=== PATIENT | female | born 1955 | race Caucasian/White ===

== ENCOUNTER 2020-12-09 19:39 | Inpatient (IN) | payer BC ==
[2020-12-09] MEDS ORDERED: LORazepam 2 MG/ML INJ IV STA (21:03)
[2020-12-09] MEDS ORDERED: LORazepam 2 MG/ML INJ IM STA (21:05)
--- NOTE | 2020-12-09 21:16 | ED ---
General Adult HPI - General Source: patient, police, RN notes reviewed, old records reviewed Mode of arrival: ambulatory Limitations: no limitations <Patrick Aguirre - Last Filed: 12/09/20 22:08> <Natan Wheeler - Last Filed: 12/10/20 02:29> - General Chief complaint: Psychiatric Symptoms Stated complaint: Mental health Time Seen by Provider: 12/09/20 21:03 - History of Present Illness Initial comments: 65-year-old female brought in by local police for psychiatric evaluation. She has been petitioned. Apparently the patient recently lost her and has had some delusional thought. She has incoherent speech, detailed history is not able to be obtained from the patient. (Patrick Aguirre) - Related Data Home Medications Medication Instructions Recorded Confirmed Ibuprofen [Motrin] 800 mg PO DAILY PRN 12/09/20 12/09/20 LORazepam [Ativan] 0.5 mg PO DAILY PRN 12/09/20 12/09/20 Thyroid,Pork [Pilot Boat Operator Thyroid] 60 mg PO DAILY 12/09/20 12/09/20 Allergies Allergy/AdvReac Type Severity Reaction Status Date / Time bee venom protein (honey bee) Allergy Anaphylaxis Verified 12/09/20 22:48 Review of Systems ROS Other: All systems not noted in ROS Statement are negative. <Patrick Aguirre - Last Filed: 12/09/20 22:08> ROS Other: All systems not noted in ROS Statement are negative. <Natan Wheeler - Last Filed: 12/10/20 02:29> ROS Statement: Those systems with pertinent positive or pertinent negative responses have been documented in the HPI. Past Medical History Past Medical History: Thyroid Disorder History of Any Multi-Drug Resistant Organisms: Unobtainable Past Surgical History: No Surgical Hx Reported Past Psychological History: Unable to Obtain Smoking Status: Unknown if ever smoked Past Alcohol Use History: Unable to Obtain Past Drug Use History: Unable to Obtain <Patrick Aguirre - Last Filed: 12/09/20 22:08> General Exam Limitations: no limitations General appearance: alert, anxious Head exam: Present: atraumatic, normocephalic Eye exam: Present: normal appearance, PERRL Neck exam: Present: normal inspection. Absent: tenderness, meningismus Respiratory exam: Present: normal lung sounds bilaterally. Absent: respiratory distress, wheezes Cardiovascular Exam: Present: regular rate, normal rhythm GI/Abdominal exam: Present: soft. Absent: distended, tenderness Extremities exam: Present: normal inspection, normal capillary refill. Absent: pedal edema Neurological exam: Present: alert, oriented X3, CN II-XII intact. Absent: motor sensory deficit Psychiatric exam: Present: manic, other (Delusional) Skin exam: Present: warm, dry, intact. Absent: cyanosis, diaphoretic <Patrick Aguirre - Last Filed: 12/09/20 22:08> Course <Patrick Aguirre - Last Filed: 12/09/20 22:08> <Natan Wheeler - Last Filed: 12/10/20 02:29> Vital Signs 12/09/20 20:20 Temperature 98.1 F Pulse Rate 92 Respiratory 18 Rate Blood Pressure 121/81 O2 Sat by Pulse 96 Oximetry - Reevaluation(s) Reevaluation #1: 12/09/20 21:16 Cleared for EPS. (Patrick Aguirre) Reevaluation #2: 12/09/20 2300 Patient care has been signed out to Dr. Wheeler At shift change awaiting EPS evaluation (Patrick Aguirre) 12/10/20 02:28 Record is reviewed (Natan Wheeler) Reevaluation #3: 12/10/20 02:28 Medical clear for psychiatric evaluation (Natan Wheeler) Medical Decision Making <Natan Wheeler - Last Filed: 12/10/20 02:29> - Medical Decision Making 65 female who was seen and evaluated psychiatry, patient be admitted for psychiatric evaluation and treatment (Natan Wheeler) Disposition <Patrick Aguirre - Last Filed: 12/09/20 22:08> Is patient prescribed a controlled substance at d/c from ED?: No <Natan Wheeler - Last Filed: 12/10/20 02:29> Clinical Impression: Acute anxiety, Depression, Psychosis, Acute psychosis Disposition: TRANSFER TO PSYCH HOSP/UNIT Condition: Fair
[2020-12-10] MEDS ORDERED: MAGNESIUM HYDROXIDE 2,400 MG/10 ML CUP PO PRN (02:47)
[2020-12-10] MEDS ORDERED: LORazepam 1 MG TAB PO PRN (02:47)
[2020-12-10] MEDS ORDERED: MAG HYDROX/AL HYDROX/SIMETH 30 ML CUP PO PRN (02:47)
[2020-12-10] MEDS ORDERED: LORazepam 2 MG/ML INJ IM PRN (02:54)
[2020-12-10] MEDS ORDERED: HALOPERIDOL LACTATE 5 MG/ML 1 ML VIAL IM PRN (02:55)
[2020-12-10] MEDS ORDERED: haloperidoL 5 MG TAB PO PRN (02:55)
[2020-12-10] MEDS: THYROID, PORK 30 MG TAB PO SCH ×2 (09:03→09:19)
--- NOTE | 2020-12-10 11:35 | P.HP ---
Psychiatric H&P - . H&P Date: 12/10/20 History & Physical: Allergies Allergy/AdvReac Type Severity Reaction Status Date / Time bee venom protein (honey bee) Allergy Anaphylaxis Verified 12/09/20 22:48 Vital Signs Temp 97.5 F L 12/10/20 03:06 Pulse 64 12/10/20 03:06 Resp 16 12/10/20 03:06 BP 137/90 12/10/20 03:06 Pulse Ox 100 12/10/20 03:06 Intake & Output 12/09/20 12/10/20 12/10/20 18:59 06:59 18:59 Weight 53.887 kg 12/10/20 11:27 IDENTIFYING DATA: Patient is a 65-year-old female HPI: Patient presented to the hospital yesterday with police for a psychiatric evaluation. Patient was petitioned by her daughter Elena who states in the petition that she is "delusional thoughts, gun with ammunition, recent loss of , which may have triggered change in behavior, has one to multiple police departments causing confrontation, belief of a "psychopathy" in the community, carrying gun, drinking, I would've ordinary promiscuity". Patient in the ER was apparently delusional and having incoherent speech and was fairly uncooperative with the evaluation. Patient was seen on the unit in her room and was uncooperative and hostile with development writer. She swore and yelled profanities at development writer when development writer introduced himself and claims that "Im not Shahla now leave me the f alone!". She gathered her pillows and appeared to be physically agitated and walked over to another bed and began speaking negatively about her family wanting to "pump me full of meds" and began swearing repetitively and stopped talking to development writer and demanded him to leave the room. She is impulsive and aggressive/hostile this morning. She did not cooperate with the rest of the interview. PAST PSYCHIATRIC HISTORY: Patient has an unknown psychiatric history. Patient refused to give further details of her psychiatric history or medications. PMH: Thyroid disorder ALLERGIES: as per EMR CHEMICAL DEPENDENCY HISTORY: as per HPI FAMILY PSYCHIATRIC/SUBSTANCE USE HISTORY: Unable to obtain SOCIAL HISTORY: Unable to obtain. MENTAL STATUS EXAM: General Appearance: Patient appears to be restless, stated age is alert, difficult to engage with, uncooperative/hostile. Patient appears to have poor hygiene and grooming. Behavior: Patient is aggressive/hostile. Speech: Patient's speech is loud and demanding Mood/Affect: Unable to assess Suicidality/Homicidality: unAble to assess Perceptions: Unable to assess Though content/process: Rambles, delusional, illogical. Memory and concentration: Unable to assess Judgment and insight: poor/impulsive STRENGTHS/WEAKNESSES: strength is that patient is resilient. Weakness is that patient has poor judgment and is impulsive INTELLECT: average IMPRESSIONS: Psychosis unspecified PLAN: -Patient is admitted under involuntary status to MHU for stabilization of psychiatric symptoms and safety. Patient has not signed adult voluntary form and medication consent and is placed in patient's chart. A second certification was completed and along with petition will be filed for court. -Medications : Will start patient on paliperidone by mouth 3 mg daily at bedtime for mood stabilization/psychosis. -Ativan and Haldol PRN for agitation/aggression -Internal Medicine consult to perform medical evaluation and physical. -NRT - not needed as patient does not smoke -SW on board for discharge planning. Encourage patient to participate in groups to work on coping skills. Will await deferral and court date.
[2020-12-10] MEDS: PALIPERIDONE 3 MG TAB.ER.24 PO SCH (21:08)
--- NOTE | 2020-12-11 01:21 | P.PN ---
Progress Note - Text Progress Note Date: 12/11/20 Patient sedated and could not be evaluated.
[2020-12-11] MEDS: THYROID, PORK 30 MG TAB PO SCH (08:55)
--- NOTE | 2020-12-11 11:51 | P.PN ---
Progress Note - Text Progress Note Date: 12/11/20 Interval History: Patient was seen wandering the hallways and was directable and agreeable to sp michelle with technical document writer in her room. Patient appeared to be fairly paranoid with a technical document writer and spoke negatively of staff as they were trying to poison her. She was rambling and tangential/circumstantial in her thought processes. She was fairly disorganized. She spoke about her dying recently and about her links to the police force. She also spoke about [place] get [place]. She appeared to have very poor insight into her condition and has been refusing medications. She states that she slept okay last night. At this time patient denies any suicidal or homical ideations, intent or plan. Patient denies any auditory, visual hallucinations. Patient denies any side effects from the medications and has been compliant with meds. Mental Status Exam: General Appearance: Patient appears to be thin, stated age is alert, difficult to redirect, disorganized. Behavior: Patient is calmly seated without any agitated behavior. Speech: Patient's speech is fluent and nonpressured. Mood/Affect: Mood is "okay", affect is congruent and constricted. Suicidality/Homicidality: Patient denies having any suicidal or homicidal ideation intent or plan. Perceptions: Patient denies any visual hallucinations and denies any auditory hallucinations Though content/process: Tangential/circumstantial, rambles. Illogical at times. Significant paranoia. Memory and concentration: AOX3, grossly intact for the purposes of this session Judgment and insight: poor Assessment Psychosis unspecified Plan: -Patient continues to meet criteria for inpatient psychiatric admission for symptom stabilization and safety. Patient has not signed adult voluntary form and medication consent and was placed in patient's chart. -Medications: paliperidone by mouth 3 mg daily at bedtime for mood stabilization/psychosis. -When necessary Ativan and Haldol for agitation/aggression. -NRT -not needed as patient does not smoke -SW on board for discharge planning. Encouraged the patient to participate in milieu. Currently awaiting deferral with assistant district attorney and court date.
--- NOTE | 2020-12-11 17:37 | P.HPMEDMHU ---
History of Present Illness H&P Date: 12/11/20 History of Presenting Illness: Patient is a 65-year-old female with a past medical history of hypothyroidism. She is currently admitted to inpatient mental health unit under psychiatric team for evaluation of psychotic behaviors with diagnosis of psychosis. We have been consulted for continued medical management throughout her hospitalization. Upon physical examination, patient reports history of hypothyroidism and recent loss of her whom she reports she cared for while he was on hospice and states that she has since lost 35 pounds. Patient expressing paranoid behaviors throughout assessment very worried somebody was listening at the door and displayed delusional thoughts with aggressive and anxious behaviors with use of profanities regarding her hospitalization. Patient reported that she is currently locked up in this hospital because the police brought her here as part of the witness protection program to keep her safe because she witnessed a double homicide. Patient denies having any other complaints or needs at this time including headache, lightheadedness, dizziness, chest pain, palpitations, shortness of breath, or experiencing any numbness/tingling/weakness in her extremities. Review of systems: Pertinent positives and negatives as discussed in HPI, a complete review of systems was performed and all other systems are negative. Physical exam: Vital signs reviewed and stable. General: Nontoxic, no distress and appears stated age. Derm: Skin warm and dry, normal coloration for ethnicity. Head: Atraumatic, normocephalic and symmetric. Eyes: EOMs intact, no lid lag, and anicteric sclera Mouth: no lip lesions, mucus membranes moist Cardiovascular: regular rate and rhythm with normal S1S2, no murmur, positive posterior tibial pulses bilaterally, and cap refill < 2 seconds. Lungs: Respirations even, regular, and unlabored on room air. Lungs CTA bilaterally, no rhonchi, no rales, no wheezing, and no accessory muscle usage. Abdominal: soft, nontender to palpation, no guarding, no appreciable organomegaly Ext: ROM intact. No gross muscle atrophy, no edema, no contractures Neuro: Speech clear, face symmetrical and CN II-XII grossly intact with no noted focal neuro deficits Psych: Alert and oriented to person, place, time, and situation. Patient paranoid behaviors, delusional thought process, appears anxious and aggressive with language and use of profanities Assessment and Plan of Care: Hypothyroidism -Continue daily medication regimen. -We will obtain a TSH with reflex free T4 secondary to patient's reports of 35 pound weight loss and current psychosis. Psychosis -Management per primary admitting psychiatric team. -As stated above, we will obtain a TSH with reflex free T4 to rule out hyperthyroidism as cause of psychosis and urinalysis with urine drug screen Has been ordered. Thank you for allowing us to participate in the care of this pleasant patient. Do not hesitate to contact us with questions. RN to notify provider with needs. Someone can be reached from the [facility] hospitalist group all hours of the day at [phone] or via [employer]. Past Medical History Past Medical History: Thyroid Disorder History of Any Multi-Drug Resistant Organisms: Unobtainable Past Surgical History: No Surgical Hx Reported Past Psychological History: Unable to Obtain Smoking Status: Unknown if ever smoked Past Alcohol Use History: Unable to Obtain Past Drug Use History: Unable to Obtain Medications and Allergies Home Medications Medication Instructions Recorded Confirmed Type Ibuprofen [Motrin] 800 mg PO DAILY PRN 12/09/20 12/09/20 History LORazepam [Ativan] 0.5 mg PO DAILY PRN 12/09/20 12/09/20 History Thyroid,Pork [Chief Executive Thyroid] 60 mg PO DAILY 12/09/20 12/09/20 History Allergies Allergy/AdvReac Type Severity Reaction Status Date / Time bee venom protein (honey bee) Allergy Anaphylaxis Verified 12/09/20 22:48 Cranial Nerve Examination - Cranial Nerves Cranial Nerve II- Optic: Intact Cranial Nerve III- Oculomotor: Intact Cranial Nerve IV- Trochlear: Intact Cranial Nerve V- Trigeminal: Intact Cranial Nerve - Abducens: Intact Cranial Nerve VII- Facial: Intact Cranial Nerve VIII- Auditory: Intact Cranial Nerve IX- Glossopharyngeal: Intact Cranial Nerve X- Vagus: Intact Cranial Nerve XI- Accessory: Intact Cranial Nerve XII- Hypoglossal: Intact
[2020-12-11] MEDS: PALIPERIDONE 3 MG TAB.ER.24 PO SCH (21:55)
[2020-12-12 08:52] LABS: T4, Free (Free Thyroxine) 0.44 ng/dL (0.78-2.19)
[2020-12-12] MEDS: THYROID, PORK 30 MG TAB PO SCH (09:11)
--- NOTE | 2020-12-12 12:15 | P.PN ---
Progress Note - Text Progress Note Date: 12/12/20 Interval History: Patient was seen in her room laying in her bed and did not want to leave her r oom today. She continues to endorse paranoia and delusional with regards to needing to "solve a double homicide" in speaking with the "[place] state police". She was fairly illogical and had loose associations. She was rambling today. She spoke about her once again and began crying. She continues to state that she does not need psychiatric care or medications. She has been refusing her paliperidone at nighttime. She claims that she sleeps fine. At this time patient denies any suicidal or homical ideations, intent or plan. Patient denies any auditory, visual hallucinations. Patient denies any side effects from the medications and has been compliant with meds. Mental Status Exam: General Appearance: Patient appears to be thin, stated age is alert, difficult to redirect, disorganized. Behavior: Patient is calmly seated without any agitated behavior. Speech: Patient's speech is fluent and nonpressured. Mood/Affect: Mood is "fine", affect is congruent and constricted. Suicidality/Homicidality: Patient denies having any suicidal or homicidal ideation intent or plan. Perceptions: Patient denies any visual hallucinations and denies any auditory hallucinations Though content/process: Tangential/circumstantial, rambles. Illogical at times. Significant paranoia. delusional Memory and concentration: AOX3, grossly intact for the purposes of this session Judgment and insight: poor Assessment Psychosis unspecified Plan: -Patient continues to meet criteria for inpatient psychiatric admission for symptom stabilization and safety. Patient has not signed adult voluntary form and medication consent and was placed in patient's chart. -Medications: paliperidone by mouth 3 mg daily at bedtime for mood stabilization/psychosis. patient is not taking her meds. -When necessary Ativan and Haldol for agitation/aggression. -NRT -not needed as patient does not smoke -SW on board for discharge planning. Encouraged the patient to participate in milieu. Patient is meeting with bankruptcy attorney today for deferral and full court hearing set for 12/17.
[2020-12-12] MEDS: PALIPERIDONE 3 MG TAB.ER.24 PO SCH (21:37)
[2020-12-13] MEDS: THYROID, PORK 30 MG TAB PO SCH (07:59)
[2020-12-13] MEDS: PALIPERIDONE 3 MG TAB.ER.24 PO SCH (21:23)
--- NOTE | 2020-12-13 23:17 | P.PN ---
Progress Note - Text Progress Note Date: 12/13/20 Subjective: Patient was seen today as a cross coverage for Dr. Daugherty. The patient was evaluated, chart reviewed, case discussed with the treatment team. Patient reports good sleep last night, and appetite was reported as " fair". Patient has been going to selected groups and other unit activities. The patient is not taking her medications. Patient was very guarded and superficial in answering questions, but generally she denies depression or anxiety symptoms. She denies any suicidal or homicidal ideation. Patient denies any hallucinations. Patient was very fixated on that she doesn't need to be in the hospital and the only medication she is prescribed is thyroid. Patient presents with some delusions about she had coveted infection 2 years ago and she is a senior investigator witnessed".or homicide", and he reported that" I just to help with my to ". When asking about explanation for her statements, she became very agitated and left the room without excuse. Objective: Vitals has been reviewed. Mental status examination; Appearance: The patient appears stated age, groomed, below average body built, no specific features. Gait/posture: Normal gait, Normal arm swinging: No abnormal movements. Attitude and behavior: Not engaged, officially cooperative, poor eye contact. Motor activity: increased psychomotor activity Speech: Normal rate and rhythm Mood: Agitated Affect: Intensity Thought form: Not goal-directed, linear, not coherent. Thought content: Delusional. Denies suicidal thoughts, denies homicidal thoughts, denies intentions or plans. Perception: Denies any auditory or visual hallucinations Attention: No impairment. Patient was able to repeat serial 5. Orientation: Patient is oriented to time place person and situation. Insight: Patient has poor insight about her psychiatric disorder. Judgment: Patient has poor judgment about her psychiatric treatment. Assessment: Psychosis unspecified Plan: Continue inpatient level of care due to need for further monitoring and stabilization Precautions: Continue 15 minutes check for safety. Consider medical consultation if any acute medical issues arise. Provide the patient individual, group therapy, substance use disorder counseling to give better insight and learn coping skills. Medications: The patient is refusing medications and she is prescribed Invega 3 mg at bedtime. Continue as needed medications for psychiatric emergencies including psychosis, agitation and anxiety. Continue non-psychiatric medications for medical conditions as recommended by the medical team. NRT Discharge patient to OUTPATIENT services upon a stabilization
[2020-12-14] MEDS: THYROID, PORK 30 MG TAB PO SCH (08:42)
[2020-12-14] MEDS: PALIPERIDONE 3 MG TAB.ER.24 PO SCH (20:39)
--- NOTE | 2020-12-14 23:35 | P.PN ---
Progress Note - Text Progress Note Date: 12/14/20 Subjective: Patient was seen today as a cross coverage for Dr. Daugherty. The patient was evaluated, chart reviewed, case discussed with the treatment team. The patient continues to present with the same that she was guarded and very evasive in her answers. Today, the patient was talking about having fantasy that she is involved with in and you love relationship with a person who is calling her while she is in the unit. Patient denies feeling depressed, hopeless or suicidal. Denies any hallucinations, paranoid ideation, or delusions. Reports fair sleep and appetite. Patient continues to refuse any psych medications. Objective: Vitals has been reviewed. Mental status examination: Appearance: The patient appears stated age, groomed, below average body built, no specific features. Gait/posture: Normal gait, Normal arm swinging: No abnormal movements. Attitude and behavior: Not engaged, officially cooperative, poor eye contact. Motor activity: increased psychomotor activity Speech: Normal rate and rhythm Mood: "fine" Affect: Intensity Thought form: goal-directed, linear, coherent. Thought content: Delusional. Denies suicidal thoughts, denies homicidal thoughts, denies intentions or plans. Perception: Denies any auditory or visual hallucinations Attention: No impairment. Orientation: Patient is oriented to time place person and situation. Insight: Patient has poor insight about her psychiatric disorder. Judgment: Patient has poor judgment about her psychiatric treatment. Assessment: Psychosis unspecified Plan: Continue inpatient level of care due to need for further monitoring and stabilization Precautions: Continue 15 minutes check for safety. Consider medical consultation if any acute medical issues arise. Provide the patient individual, group therapy, substance use disorder counseling to give better insight and learn coping skills. Medications: The patient is refusing medications and she is prescribed Invega 3 mg at bedtime. Continue as needed medications for psychiatric emergencies including psychosis, agitation and anxiety. Continue non-psychiatric medications for medical conditions as recommended by the medical team. NRT Discharge patient to OUTPATIENT services upon a stabilization
[2020-12-15] MEDS: ACETAMINOPHEN TAB 325 MG TAB PO PRN (01:04)
[2020-12-15] MEDS: THYROID, PORK 30 MG TAB PO SCH (09:03)
--- NOTE | 2020-12-15 12:01 | P.PN ---
Progress Note - Text Progress Note Date: 12/15/20 Interval History: Patient was seen wandering the hallway speaking with another patient. She was agreeable to speak today to video game script writer. She continues to have very poor insight into her condition and believes that Manager Analysis Nima needs to recuse himself from her case because he was "involved with my daughter". She rambled and was tangential/circumstantial and a flight of ideas. She had several delusions about the police department and about different murder cases. She claims that she is sleeping fairly at nighttime and has been trying to go to some groups. She continues to refuse her medications. She claims that she sleeps finenighttime. At this time patient denies any suicidal or homical ideations, intent or plan. Patient denies any auditory, visual hallucinations. Patient denies any side effects from the medications and has been compliant with meds. Mental Status Exam: General Appearance: Patient appears to be thin, stated age is alert, difficult to redirect, disorganized. Behavior: Patient is calmly seated without any agitated behavior. Speech: Patient's speech is fluent and nonpressured. Mood/Affect: Mood is "ok", affect is incongruent and constricted. Suicidality/Homicidality: Patient denies having any suicidal or homicidal ideation intent or plan. Perceptions: Patient denies any visual hallucinations and denies any auditory hallucinations Though content/process: Tangential/circumstantial, rambles. Illogical at times. delusional Memory and concentration: AOX3, grossly intact for the purposes of this session Judgment and insight: poor Assessment Psychosis unspecified Plan: -Patient continues to meet criteria for inpatient psychiatric admission for mptom stabilization and safety. Patient has not signed adult voluntary form and medication consent and was placed in patient's chart. -Medications: paliperidone by mouth 3 mg daily at bedtime for mood stabilization/psychosis. patient is not taking her meds. -When necessary Ativan and Haldol for agitation/aggression. -NRT -not needed as patient does not smoke -SW on board for discharge planning. Encouraged the patient to participate in milieu. Patient is meeting with city attorney today for deferral and full court hearing set for 12/17.
[2020-12-15] MEDS: PALIPERIDONE 3 MG TAB.ER.24 PO SCH (20:53)
[2020-12-16] MEDS: ACETAMINOPHEN TAB 325 MG TAB PO PRN (00:50)
[2020-12-16] MEDS: THYROID, PORK 30 MG TAB PO SCH (09:07)
--- NOTE | 2020-12-16 09:52 | P.PN ---
Progress Note - Text Progress Note Date: 12/16/20 Interval History: Patient was seen wandering the hallway speaking with another patient and states that he is her second cousin. She was agreeable to speak today to marketing underwriter. She continues to have very poor insight into her condition and believes that she does not need medications and wants to be discharged today. She continues to be delusional and rambles, has loose associations duirng the interview. She spoke significantly about other deaths in the family and the police. She has a flight of ideas. She continues to beleive that the meat slicer will be working against her. She claims that she is sleeping fairly at nighttime and has been trying to go to some groups. She continues to refuse her medications. She claims that she sleeps finenighttime. At this time patient denies any suicidal or homical ideations, intent or plan. Patient denies any auditory, visual hallucinations. Patient denies any side effects from the medications and has been compliant with meds. Mental Status Exam: General Appearance: Patient appears to be thin, stated age is alert, difficult to redirect, disorganized. Behavior: Patient is calmly seated without any agitated behavior. Speech: Patient's speech is fluent and nonpressured. Mood/Affect: Mood is "fine", affect is incongruent and constricted. Suicidality/Homicidality: Patient denies having any suicidal or homicidal ideation intent or plan. Perceptions: Patient denies any visual hallucinations and denies any auditory hallucinations Though content/process: Tangential/circumstantial, rambles. Illogical at times. delusional Memory and concentration: AOX3, grossly intact for the purposes of this session Judgment and insight: poor Assessment Psychosis unspecified Plan: -Patient continues to meet criteria for inpatient psychiatric admission for symptom stabilization and safety. Patient has not signed adult voluntary form and medication consent and was placed in patient's chart. -Medications: paliperidone by mouth 3 mg daily at bedtime for mood stabilization/psychosis. patient is not taking her meds. -When necessary Ativan and Haldol for agitation/aggression. -NRT -not needed as patient does not smoke -SW on board for discharge planning. Encouraged the patient to participate in milieu. Patient is meeting with title attorney today for deferral and full court hearing set for 12/17.
[2020-12-16] MEDS: PALIPERIDONE 3 MG TAB.ER.24 PO SCH (20:50)
[2020-12-17] MEDS: ACETAMINOPHEN TAB 325 MG TAB PO PRN (01:15)
[2020-12-17] MEDS: THYROID, PORK 30 MG TAB PO SCH (09:04)
[2020-12-17] MEDS ORDERED: HALOPERIDOL LACTATE 5 MG/ML 1 ML VIAL IM PRN (12:53)
--- NOTE | 2020-12-17 12:57 | P.PN ---
Progress Note - Text Progress Note Date: 12/17/20 Interval History: Patient was seen Today after the court hearing and was wandering the hallways near the nurse's desk. Wet Sander attempted to approach patient to be interviewed today however patient refused to speak with writer producer in the office. She states that "no you testified against me and screwed me over". She was uncooperative and hostile towards writer producer and swore several times. She began speaking about her rights to refuse medications and pointed at the mental health code which was framed on the wall several times and turned away from writer producer and walked down the hallway. Mental Status Exam: General Appearance: Patient appears to be thin, stated age is alert, difficult to redirect, disorganized. Behavior: Patient is Not cooperative today and hostile. Speech: Patient's speech is fluent and nonpressured. loud at times Mood/Affect: Mood is "fine", affect is incongruent and constricted. Suicidality/Homicidality: Unable to assess Perceptions: Unable to assess Though content/process: Tangential/circumstantial, rambles. Illogical at times. delusional. demanding Memory and concentration: Unable to assess Judgment and insight: poor Assessment Psychosis unspecified Plan: -Patient continues to meet criteria for inpatient psychiatric admission for symptom stabilization and safety. Patient has not signed adult voluntary form and medication consent and was placed in patient's chart. -Medications: paliperidone by mouth 3 mg daily at bedtime for mood stabilization/psychosis. haldol IM as back up if patient refuses PO invega. -When necessary Ativan and Haldol for agitation/aggression. -NRT -not needed as patient does not smoke -SW on board for discharge planning. Encouraged the patient to participate in milieu. Patient had court haring on 12/17 which [address] in a court order for MH treatment.
[2020-12-17] MEDS: PALIPERIDONE 3 MG TAB.ER.24 PO SCH (21:50)
[2020-12-18] MEDS: THYROID, PORK 30 MG TAB PO SCH (08:49)
[2020-12-18] MEDS ORDERED: flUPHENAZine 2.5 MG/ML (MDV) 10 ML VIAL IM PRN ×2 (10:30→10:31)
--- NOTE | 2020-12-18 10:40 | P.PN ---
Progress Note - Text Progress Note Date: 12/18/20 Interval History: Patient was seen today and was laying on the couch in the lounge. She was agre eable to speak with medical writer in the office today. She appeared to have mild improvement in her irritability and was mildly less hostile towards medical writer. She continues to have poor insight into her condition and accused medical writer of diagnosing her as a "schizophrenic" and not "unspecified psychosis". She continues to state that she wants medical writer to speak with her PCP about her medications and medical writer explained that he attempted to call her PCP however she has not returned the phone call at this time. She continues to ramble and is delusional about working on a "triple homicide murder" and working with the [facility] police department. She states her mood is "fine" and denies any anxiety at this time. She refused her invega last night and claims that she does not want to take that medication and would rather take ativan instead. She states that she slept poorly last night. She is denying any auditory hallucinations or visual hallucinations at this time. She is denying any suicidal or homicidal ideations at this time. Mental Status Exam: General Appearance: Patient appears to be thin, stated age is alert, difficult to redirect, disorganized, mildly improving Behavior: Patient is Not cooperative today and hostile, mildly improving. Speech: Patient's speech is fluent and nonpressured. Mood/Affect: Mood is "fine", affect is incongruent and constricted. Suicidality/Homicidality: denies Perceptions: denies any AH or VH Though content/process: Tangential/circumstantial, rambles. Illogical at times. delusional. Memory and concentration: AOX 3, poor attentions span, Judgment and insight: poor Assessment Psychosis unspecified Plan: -Patient continues to meet criteria for inpatient psychiatric admission for symptom stabilization and safety. Patient has not signed adult voluntary form and medication consent and was placed in patient's chart. -Medications: d/c invega at this time and replaced with Prolixin PO 2.5mg BID and if patient refuses then she is to receive IM prolixin 2.5mg as per court order. -When necessary Ativan and Prolixin for agitation/aggression. -NRT -not needed as patient does not smoke -SW on board for discharge planning. Encouraged the patient to participate in milieu. Patient had court haring on 12/17 which resulted in a court order for MH treatment.
--- NOTE | 2020-12-19 09:26 | P.PN ---
Progress Note - Text Progress Note Date: 12/19/20 Interval History: Patient was seen today laying in her bed this morning and was agreeable to speak to music writer in the office today. She appeared to have mild improvement in her irritability and was mildly more cooperative towards music writer. She claims that she spoke with her daughter yesterday over the phone and spoke [place] told her to prepare. She appears to be less delusional today and ramble less anad also has an improvement in her impulse control and mild improvement in her insight into her condition. She states that she does not know if she needs treatment in the hospital. She did once again speak about wanting to turn over some cases to the municipal court judge and police force including murder cases. She states her mood is "fine" and denies any anxiety at this time. She states that she slept better last night. She is denying any auditory hallucinations or visual hallucinations at this time. She is denying any suicidal or homicidal ideations at this time. Mental Status Exam: General Appearance: Patient appears to be thin, stated age is alert, more direct able, disorganized, mildly improving Behavior: Patient is Not cooperative today and hostile, mildly improving. Speech: Patient's speech is fluent and nonpressured. Mood/Affect: Mood is "ok", affect is incongruent and constricted. Suicidality/Homicidality: denies Perceptions: denies any AH or VH Though content/process: Tangential/circumstantial, rambles. Illogical at times. delusional, improving mildly Memory and concentration: AOX3, poor attentions span. Judgment and insight: poor, improving mildly Assessment Psychosis unspecified Plan: -Patient continues to meet criteria for inpatient psychiatric admission for symptom stabilization and safety. Patient has not signed adult voluntary form and medication consent and was placed in patient's chart. -Medications: continue with Prolixin PO 2.5 mg BID and if patient refuses then she is to receive IM prolixin 2.5mg as per court order, consider increasing as needed over the weekend if needed/tolerated. Patient should be transitioned onto Prolixin Dec prior to discharge to ensure compliance. -When necessary Ativan and Prolixin for agitation/aggression. -NRT -not needed as patient does not smoke -SW on board for discharge planning. Encouraged the patient to participate in milieu. Patient had court haring on 12/17 which resulted in a court order for MH treatment.
[2020-12-19] MEDS: THYROID, PORK 30 MG TAB PO SCH (09:38)
[2020-12-19 14:00] VITALS: BMI 19.3
[2020-12-19] MEDS: ACETAMINOPHEN TAB 325 MG TAB PO PRN (22:49)
[2020-12-20] MEDS: THYROID, PORK 30 MG TAB PO SCH (08:37)
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
[2020-12-20] MEDS: FLUoxetine HCL 20 MG CAP PO SCH (17:57)
[2020-12-21] MEDS: FLUoxetine HCL 20 MG CAP PO SCH (08:02)
[2020-12-21] MEDS: THYROID, PORK 30 MG TAB PO SCH (08:03)
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
[2020-12-22] MEDS: THYROID, PORK 30 MG TAB PO SCH (09:11)
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
[2020-12-22] MEDS: FLUoxetine HCL 20 MG CAP PO SCH (11:13)
[2020-12-22] MEDS: PALIPERIDONE 6 MG TAB.ER.24 PO SCH (16:50)
[2020-12-23] MEDS: THYROID, PORK 30 MG TAB PO SCH (08:04)
[2020-12-23] MEDS: FLUoxetine HCL 20 MG CAP PO SCH (08:04)
[2020-12-23] MEDS: PALIPERIDONE 6 MG TAB.ER.24 PO SCH ×2 (08:04→14:31)
[2020-12-23 16:13] LABS: Basophils # (A) 0.1 k/uL (0-0.2); Basophils % (A) 1 %; Eosinophils # (A) 0.1 k/uL (0-0.7); Eosinophils % (A) 1 %; HCT 42.8 % (34.0-46.0); HGB 13.7 gm/dL (11.4-16.0); Lymphocytes % (A) 27 %; MCH 31.3 pg (25.0-35.0); MCV 97.9 fL (80.0-100.0); Mean Platelet Volume 7.9; Monocytes # (A) 0.2 k/uL (0-1.0); Monocytes % (A) 3 %; Neutrophils # (A) 4.8 k/uL (1.3-7.7); Neutrophils % (A) 66 %; Platelet Count 152 k/uL (150-450); RBC 4.37 m/uL (3.80-5.40); RDW 12.8 % (11.5-15.5); WBC 7.2 k/uL (3.8-10.6)
[2020-12-23 16:22] LABS: Albumin 3.7 g/dL (3.5-5.0); Calcium 9.2 mg/dL (8.4-10.2); Potassium 3.9 mmol/L (3.5-5.1); Total Bilirubin 0.2 mg/dL (0.2-1.3); Total Protein 6.1 g/dL (6.3-8.2)
[2020-12-23 16:37] LABS: T4, Free (Free Thyroxine) 0.63 ng/dL (0.78-2.19)
--- NOTE | 2020-12-23 16:46 | PN ---
PROGRESS NOTE DATE OF SERVICE: 12/23/2020 CHIEF COMPLAINT: The patient was delusional. She had disorganized and dangerous behavior including carrying a loaded pistol in her purse. INTERVAL HISTORY: The patient has been doing fair. She had a quiet day yesterday. She comes out on the unit. She will interact some with others. She has seemed to show a little more quiet or reserved manner. She will socialize with others. She attended one group yesterday and presented with a fairly reserved manner. She said she slept fairly well last night. Today she has been up. It is noteworthy that she started yesterday on Invega. She received one dose at 4:50 pm yesterday. She noted having problems in the morning time feeling lightheaded. At 8:40 am her blood pressure was noted to be 99/56 with a pulse of 95. That was the lowest blood pressure she has had, though she has had other pressures in that range. At 10:17 am this morning her blood pressure was 115/71. She said she says she has been drinking adequate fluids. Overall she seems to be showing more signs of a down mood. She has been more reserved. She spends more time in her room. When I talked to her today she had a fairly down manner and did not say much. She did request that I talk with her primary care physician, particularly about the option of an ECT referral. She says that she has some reluctance to think about whether she would want to do that at this time. She does note that she had been on Elavil when she was about 32 and said she believed it worked quite well for her for depression as well as some issues of fibromyalgia. She was willing to go back on Elavil. She has been cooperative with care. MENTAL STATUS: Patient sat without restlessness. Eye contact was fair to poor. Psychomotor activity was slow and speech was monotone. She answered questions with just 1 or 2 word responses. She did not say much. She was not spontaneous or interactive. Her affect was flat. Her mood depressed. She was moderately distressed. It was difficult to assess for thought disorder. There was no indication of thoughts of harm. She was oriented and alert. ASSESSMENT: I will continue the current diagnosis and general treatment plan. I will start the patient on Elavil 25 mg a day. The patient felt that she would be comfortable starting Elavil and believed that it had helped her in the past. Elavil would be a reasonable antidepressant alternative. At this point I will continue her on the Prozac 20 mg a day. In addition, I will discontinue Invega and go back to Prolixin. I will put her on just 2.5 mg twice a day. The patient has shown mood changes throughout her hospital stay. She has seemed to show some indications of hypomania. Whether or not she meets criteria for bipolar disorder remains to be seen. If there is that aspect to her condition we will need to watch closely in regards to start of Elavil. Today she presents more with a depression picture. Along with that she does not seem to digress into the delusional thinking that she has been dealing with. I have made a telephone call to her primary care physician, Dr Zaragoza and await a return call. The patient wanted a contact to her PCP in regards to recommendation for ECT. We will focus on stabilization and discharge planning. LEONARD / RIGOBERTO: [id number] / [id number]
[2020-12-23] MEDS: AMITRIPTYLINE HCL 25 MG TAB PO SCH (21:58)
[2020-12-24] MEDS: THYROID, PORK 30 MG TAB PO SCH (08:04)
[2020-12-24] MEDS: FLUoxetine HCL 20 MG CAP PO SCH ×2 (08:18→12:51)
[2020-12-24] MEDS: AMITRIPTYLINE HCL 25 MG TAB PO SCH (21:23)
--- NOTE | 2020-12-24 22:15 | PN ---
PROGRESS NOTE DATE OF SERVICE: 12/24/2020 CHIEF COMPLAINT: The patient was delusional. She had disorganized and dangerous behavior, including carrying a loaded pistol in her purse. INTERVAL HISTORY: Patient has been struggling with depression. She had a quiet day yesterday. She spent much of the day in her room. She did not attend groups yesterday, which is a significant change for her. She did not interact much with staff or peers. She had her daughter call staff in regard to concerns that her thyroid dosing may be low. She had repeat thyroid levels yesterday, which include free T4 at 0.6, which is low, free T3 at 4.2, and TSH normal at 2.7. It is noted that her TSH is down from 5.7 on admission. She slept fairly well last night. Today she continues to remain in her room, spending most of the day in bed. She does come out for meals. She interacts minimally with others. When I talked to her today, she continued to show considerable depressed mood. She was very lethargic and essentially said she had no inclination to talk. She said she felt dizzy. Staff feel that she has not been keeping up much with fluid intake. Blood pressure has been in a reasonable range with her vital signs at 1250 including BP 134/62, pulse 93 and regular, respirations 16, oxygen saturation 100. Her somewhat higher pulse may be an indication of some dehydration. I had extensive telephone conversations with two of the patient's daughters, Estefania and Elena. It is noted that Elena shared some experiences she had with her mother quite a bit prior to this last year. She seemed to indicate that the patient had episodes of getting impulsive, intent and disordered in her thinking. She had impulsive behavior and there is concern that she may have been showing signs of manic symptoms long before this last year. When I talked to the patient today, she said that she was not inclined to proceed with ECT, though she did not really make much effort to discuss the issue further. She continued to say that she hopes to have some input from her primary care physician, Dr. Mccoy. She tolerates psychotropic medications. MENTAL STATUS: Patient was in her room lying down. She declined getting up to come to the office. She did not give any eye contact at all. She responded to some questions with one- or two- word responses. She did not say much. Her affect was flat, her mood depressed. She was significantly distressed. It is noteworthy that she did not make any comments about issues such as investigations, which seems to be some delusional thinking she has. She did not make any clear indication regarding thoughts of harm. She appeared to be oriented to circumstances and her environment. ASSESSMENT: I would consider a diagnosis of bipolar affective disorder as opposed to major depression with psychotic features. It does appear that she has been having significant manic symptoms early on in her hospitalization and now has moved into a depressed phase. It is likely that the psychotic symptoms she was having with delusions about investigations, double murders and so forth appeared to have risen in the manic phase, and now in depression she is much more withdrawn. She had been showing behavioral issues that were suggestive of bipolar ashley early in her hospitalization; also prior to coming into the hospital, including impulsive and disorganized behavior, some fairly compulsive and intense behavior such as engaging with people whom she knows very little, though it got to the point where she actually wrote a check for $20,000. Relating to this, we have made contact with [facility] in regard to possible referral for ECT. Further contacts are in the process as well. I have twice called her primary care physician, Dr. Mccoy ([phone]), and left contact information. Her daughter Elena has also done the same though has not heard back from her. At this point it might be reasonable to look at a slow titration up on her Elavil, which is an antidepressant that she said had worked well for her, though it was in the distant past. Given that she appears to show a fairly clear picture of bipolar disorder with both manic and depressive phase, there might be consideration for alternative medications, including addition of lithium. She might benefit from Seroquel, which has indications for both bipolar ashley and bipolar depression. Given that she is on Prozac, there might also be indication for use of Zyprexa, which also has the indication for both phases. We will need to monitor, given that she is on a tricyclic antidepressant, which may have some increased risk for inducing ashley. Given her overall poor response to medications, it still would be a reasonable consideration for a referral for ECT, which in fact may be a critical treatment for the patient. We will focus on stabilization and discharge planning. MMODL / IJN: [id number] /
[2020-12-25] MEDS: THYROID, PORK 30 MG TAB PO SCH (08:05)
[2020-12-25] MEDS: FLUoxetine HCL 20 MG CAP PO SCH (08:23)
--- NOTE | 2020-12-25 09:28 | P.PN ---
Progress Note - Text Progress Note Date: 12/25/20 Interval History: Patient was seen wandering the hallways this morning and was agreeable to speak to grant writer in the office today. She appeared to have mild improvement in her irritability and was mildly more cooperative with grant writer. She continues to be fairly superficial and have fairly poor insight into her condition. She states that she is not delusional any longer and was fairly preoccupied with her blood pressure. She states that the medications have been making her blood pressure drop however looking at the vital signs and blood pressure for the past several days it has been fairly normal. She was fairly vague about what she spoke to her daughter about over the phone. She was focused on discharge and minimizing her need for treatment. She is currently refusing Prolixin by mouth and also was refusing Prozac. She appears to be less delusional today and ramble less today. She states her mood is "fine" and denies any anxiety at this time. She states that she slept "ok" last night. She is denying any auditory hallucinations or visual hallucinations at this time. She is denying any suicidal or homicidal ideations at this time. Mental Status Exam: General Appearance: Patient appears to be thin, stated age is alert, more directable, disorganized, mildly improving Behavior: Patient is mildly more cooperative today. Superficial/evasive Speech: Patient's speech is fluent and nonpressured. Mood/Affect: Mood is "ok", affect is incongruent and constricted. Suicidality/Homicidality: denies Perceptions: denies any AH or VH Though content/process: Tangential/circumstantial, rambles. Illogical at times. delusional, improving mildly Memory and concentration: AOX3, poor attentions span. Judgment and insight: supreficial/poor Assessment Psychosis unspecified Plan: -Patient continues to meet criteria for inpatient psychiatric admission for symptom stabilization and safety. Patient has not signed adult voluntary form and medication consent and was placed in patient's chart. -Medications: continue with Prolixin PO 2.5 mg BID and if patient refuses then she is to receive IM prolixin 2.5mg as per court order. Patient should be transitioned onto Prolixin Dec prior to discharge to ensure compliance. can continue with elavil 25 mg hs for mood/sleep however if partient is too sedated or has hypotension then will consider discontinuing. -When necessary Ativan and Prolixin for agitation/aggression. -NRT -not needed as patient does not smoke -SW on board for discharge planning. Encouraged the patient to participate in milieu. Patient had court haring on 12/[address] a court order for MH treatment.
[2020-12-25] MEDS: AMITRIPTYLINE HCL 25 MG TAB PO SCH (20:47)
[2020-12-26] MEDS: THYROID, PORK 30 MG TAB PO SCH (08:35)
--- NOTE | 2020-12-26 11:19 | P.PN ---
Progress Note - Text Progress Note Date: 12/26/20 Interval History: Patient was seen laying in bed today and was agreeable to speak to automotive service writer in the office. She appeared to have improvement in her irritability and was more cooperative with automotive service writer today. She appeared to have some improvement in her insight today and judgment. Administrative Volunteer and patient spoke about the court order and answered several questions about her medications and treatment plan. Patient claims that she is "not working on any homicide cases anymore" and claims that she does not need to carry anymore weapons or talk to the police. She was less focused on her delusions today. Asked about her medications and compliance she states that "if I don't take them all probably relapse and come back to the hospital". She appears to be less delusional today and ramble less today. She states her mood is "good" and denies any anxiety at this time. He did complain of feeling tired today and having poor energy level. She states that she was able to sleep fairly last night. She is denying any auditory hallucinations or visual hallucinations at this time. She is denying any suicidal or homicidal ideations at this time. Mental Status Exam: General Appearance: Patient appears to be thin, stated age is alert, more directable, mildly improving Behavior: Patient is mildly more cooperative today. Speech: Patient's speech is fluent and nonpressured. Mood/Affect: Mood is "better", affect is congruent and constricted. Suicidality/Homicidality: denies Perceptions: denies any AH or VH Though content/process: Tangential/circumstantial, improving mildly. delusional, improving mildly Memory and concentration: AOX3, improved attention span. Judgment and insight: poor, proving mildly Assessment Psychosis unspecified Plan: -Patient continues to meet criteria for inpatient psychiatric admission for symptom stabilization and safety. Patient has not signed adult voluntary form and medication consent and was placed in patient's chart. -Medications: decrease Prolixin PO 1.5 mg BID starting tomorrow morning with plan to titrate off over the weekend and if patient refuses then she is to receive IM prolixin 2.5mg as per court order. Patient will receive Prolixin D 37.5 mg today to ensure compliance with next dose to be given every 3 weeks on 01/16/2021. Decrease elavil 10 mg hs for mood/sleep however if partient is too sedated or has hypotension then will consider discontinuing over the weekend. Start melatonin 3mg qhs for insomnia. -When necessary Ativan and Prolixin for agitation/aggression. -NRT -not needed as patient does not smoke -SW on board for discharge planning. Encouraged the patient to participate in milieu. Patient had court hearing on 12/17 which resulted in a court order for MH treatment. If patient does well over the weekend and transitioned onto Prolixin D then likely discharge Tuesday back home with [facility] follow-up.
[2020-12-26] MEDS ORDERED: fluPHENAZine DECANOATE 25 MG/ML 5ML MDV IM ONE (14:00)
[2020-12-26] MEDS: AMITRIPTYLINE HCL 10 MG TAB PO SCH (20:14)
[2020-12-26] MEDS: MELATONIN 3 MG TABLET PO SCH (20:25)
[2020-12-27] MEDS: THYROID, PORK 30 MG TAB PO SCH (07:56)
--- NOTE | 2020-12-27 16:46 | P.PN ---
Progress Note - Text Progress Note Date: 12/27/20 Clinical Problems: Unspecified psychotic disorder Interim history: I reviewed the medical record and interviewed the patient. She is a 65-year-old woman admitted to the psychiatric unit involuntarily with increasing paranoia and paranoid delusional beliefs. She had a probate hearing and 12/17/2020 where she received a combined treatment order. She's been treated with oral Prolixin and the first injection of Prolixin Decanoate 37.5 mg on 12/26/2020. Her only concern was discharge. She remains perplexed over the reason for this hospitalization and talked about high return the to investigate the petition that her daughter completed. She was compliant with the morning dose of Pr olixin, 1.5 mg. She intermittently attends therapeutic groups and activities. Mental status exam: She presented as a thin casually groomed 65-year-old female who was pleasant on approach. She made eye contact and appeared to attend to the interview. She had no distinction features are prominent physical abnormalities. She is a sad facial expression. She had slight psychomotor retardation but no abnormal involuntary movements. His speech was spontaneous and consistent with her mood. Affect was depressed and she cried when talking about her experiences leading to this hospitalization. She did not express suicidal ideation, wishes or homicidal ideation. She denied feeling hopeless and helpless or worthless. She ruminated on this hospitalization and her perceived losses as a result of the hospitalization. She did not express clear ideas reference, paranoid ideation or paranoid delusional beliefs. Her thinking was concrete but her associations were coherent, logical and goal directed. Assessment: She is severely mentally ill and much improved from admission. She is much less irritable and paranoid. Plan: Continue inpatient treatment. Continue suicide precautions. Continue oral Prolixin 1.5 mg twice a day and Prolixin Decanoate 37.5 mg every 3 weeks. Continue melatonin 3 mg at bedtime and Elavil 10 mg at bedtime. Encourage continued participation in therapeutic groups and activities. Evaluate clinical status response to treatment daily basis.
[2020-12-27] MEDS: MELATONIN 3 MG TABLET PO SCH (20:37)
[2020-12-27] MEDS: AMITRIPTYLINE HCL 10 MG TAB PO SCH (20:38)
[2020-12-28] MEDS: THYROID, PORK 30 MG TAB PO SCH (07:54)
--- NOTE | 2020-12-28 14:09 | P.PN ---
Progress Note - Text Progress Note Date: 12/28/20 Clinical Problems: Unspecified psychotic disorder, rule out major depressive disorder with psychotic features Interim history: I reviewed the medical record and interviewed the patient. She maintain that this hospitalization was unnecessary and treated. She is unable to explain the reason that her daughter filed a petition for hospitalization. She alleged that she had no behavioral mental health problems when she presented to the hospital. She complained that the Prolixin is causing her to feel "numb". Her only concern was discharge. She remains perplexed over the reason for this hospitalization and talked about high return the to investigate the petition that her daughter completed. She took her last dose of oral Prolixin this morning. She intermittently attends therapeutic groups and activities.. She slept 7 hours last night. Mental status exam: She presented as a thin casually groomed 65-year-old female who was pleasant on approach. She made eye contact and appeared to attend to the interview. She had no distinguishing features or prominent physical abnormalities. She is a sad facial expression. She had slight psychomotor retardation but no abnormal involuntary movements. His speech was spontaneous and consistent with her mood. Affect was depressed. She did not express suicidal ideation, wishes or homicidal ideation. She denied feeling hopeless and helpless or worthless. She ruminated on this hospitalization and her perceived losses as a result of the hospitalization. She did not express clear ideas reference, paranoid ideation or paranoid delusional beliefs. Her thinking was concrete but her associations were coherent, logical and goal directed. Assessment: She is severely mentally ill and much improved from admission. She is much less irritable and paranoid. Plan: Continue inpatient treatment. Continue suicide precautions. Continue Prolixin Decanoate 37.5 mg every 3 weeks. Continue melatonin 3 mg at bedtime and Elavil 10 mg at bedtime. Encourage continued participation in therapeutic groups and activities. Evaluate clinical status response to treatment daily basis.
[2020-12-28] MEDS: MELATONIN 3 MG TABLET PO SCH (20:21)
[2020-12-28] MEDS: AMITRIPTYLINE HCL 10 MG TAB PO SCH (20:22)
[2020-12-29 06:46] VITALS: BP 149/74; PULSE 62; RESP 18; TEMP 97.8
[2020-12-29] MEDS: THYROID, PORK 30 MG TAB PO SCH (07:51)
[2020-12-29] MEDS ORDERED: BENZTROPINE MESYLATE 1 MG TAB PO PRN (09:46)
--- NOTE | 2020-12-29 11:50 | P.DS ---
Providers Date of admission: 12/10/20 00:59 Expected date of discharge: 12/29/20 Attending physician: Leopoldo Daugherty MD Consults: 12/10/20 02:47 Consult Physician Routine Consulting Provider: Henrique Villeda Consult Reason/Comments: H&P Do you want consulting provider notified?: Yes Primary care physician: Madeleine Zaragoza - Discharge Diagnosis(es) (1) Schizoaffective disorder, bipolar type Current Visit: Yes Status: Acute Priority: High Hospital Course: Admission HPI: Admission note was completed by blurb writer "Patient is a 65-year-old female. Patient presented to the hospital yesterday with police for a psychiatric evaluation. Patient was petitioned by her daughter Elena who states in the petition that she is "delusional thoughts, gun with ammunition, recent loss of , which may have triggered change in behavior, has one to multiple police departments causing confrontation, belief of a "psychopathy" in the community, carrying gun, drinking, I would've ordinary promiscuity". Patient in the ER was apparently delusional and having incoherent speech and was fairly uncooperative with the evaluation. Patient was seen on the unit in her room and was uncooperative and hostile with blurb writer. She swore and yelled profanities at blurb writer when blurb writer introduced himself and claims that "Im not Shahla now leave me the f alone!". She gathered her pillows and appeared to be physically agitated and walked over to another bed and began speaking negatively about her family wanting to "pump me full of meds" and began swearing repetitively and stopped talking to blurb writer and demanded him to leave the room. She is impulsive and aggressive/hostile this morning. She did not cooperate with the rest of the interview." Hospital course: Upon admission to the unit patient was initially psychotic bizarre and aggressive, delusional. Patient was however admitted involuntarily and a second certificate was completed and sent to the court. Patient ended up having a court hearing on 12/17 which resulted in a court order for mental treatment. Patient with treatment eventually got along well with other patients on the unit and followed unit protocol. Patient was compliant with the medications after she was court ordered however was refusing meds before hand. Patient did have minor anticholinergic side effects from elavil which included dry mouth, sedation and blurry vision, the decision was made to discontinue this med and was given cogentin 1mg daily prn for muscle spasms or eps rxn. Patient was started on invega initially however was not taking the medication and was switched onto Prolixin by mouth. Patient was then given a Prolixin Decanoate injection of 37.5 mg on 12/26 and will be due for her next dose to 3 weeks in 01/16/2021. Patient was also started on melatonin 6 mg daily at bedtime for insomnia. Patient spoke of her stressors and engaged in therapy both group and individual. Patient was also seen by medical team for history and physical exam. Throughout the course of the hospitalization patient gradually improved with regards to mood, anxiety, psychosis/delusions, sleep and became more future oriented with improved insight and judgment. On the day of discharge patient denied any suicidal or homicidal ideations intent or plan denied any auditory or visual hallucinations. Patient endorsed wanting to live for his health and family. The patient did have access to a gun at home and SW had called her daughter/rikki to ensure that the gun was removed from the house and that it was confirmed. Patient denied any paranoia and did not endorse any delusions. Patient does not have a significant history of substance abuse however was counseled on abstaining from all substances including alcohol and marijuana. Patient was also counseled on the medications and need for regular compliance and was encouraged to follow-up with their outpatient appointment for mental health and also for primary care. Prior to discharge a family meeting will be arranged by licensed social worker to answer any questions and ensure safety upon discharge. Mental status exam: General Appearance: Patient appears to be thin, stated age is alert, pleasant, and cooperative. Patient is in no acute distress and has improved hygiene and grooming Behavior: Patient is calmly seated without any agitated behavior. Speech: Patient's speech is fluent and nonpressured. Mood/Affect: Patient reports their mood is "good", affect is congruent Suicidality/Homicidality: Patient denies having any suicidal or homicidal ideation intent or plan. Perceptions: Patient denies any auditory or visual hallucinations. Though content/process: There is no evidence of any delusional thought content and thought process is linear and goal-directed. more future oriented Memory and concentration: AOX3, grossly intact for the purposes of this session. Can spell "WORLD" backwards correctly. Judgment and insight: improved with guarded prognosis Impression: Schizoaffective disorder, bipolar type Plan: -Continue with discharge today as patient has improved and stabilized psychiatrically and is not currently an imminent threat to herself and/or others. -Continue medications: Prolixin by mouth was discontinued and patient was transitioned onto Prolixin Decanoate injection 37.5 mg every 3 weeks, first dose was given on 12/26 and next dose will be due on 01/16/2021. Patient is court ordered at this time. She is also on melatonin 6 mg daily at bedtime for insomnia. She was started on Cogentin 1 mg daily when necessary for EPS prophylaxis/muscle spasms. -Patient was counseled on the need for medication compliance and appropriate follow-up at mental health and also primary care for medical issues. Patient verbalized understanding and agreed. -Social work to arrange for and conduct family meeting to ensure safety upon discharge and answer any questions/concerns. Daughter/guardian will be picking patient up today and taking her back home and had ensured that the guns were removed from the house. Social work also to arrange for patients follow up appointments for psychiatric care along with follow up with primary care provider. -Patient counseled on abstaining from recreational drugs and marijuana and alcohol. Was informed/educated on the adverse effects on their physical and mental health. Patient verbally agreed and understood. -Patient was instructed to return to the hospital or seek immediate medical care if their psychiatric or medical symptoms do worsen or reoccur. Allergies Allergy/AdvReac Type Severity Reaction Status Date / Time bee venom protein (honey bee) Allergy Anaphylaxis Verified 12/09/20 22:48 Laboratory Results WBC 7.2 k/uL (3.8-10.6) 12/23/20 15:01 RBC 4.37 m/uL (3.80-5.40) 12/23/20 15:01 Hgb 13.7 gm/dL (11.4-16.0) 12/23/20 15:01 Hct 42.8 % (34.0-46.0) 12/23/20 15:01 MCV 97.9 fL (80.0-100.0) 12/23/20 15:01 MCH 31.3 pg (25.0-35.0) 12/23/20 15:01 MCHC 32.0 g/dL (31.0-37.0) 12/23/20 15:01 RDW 12.8 % (11.5-15.5) 12/23/20 15:01 Plt Count 152 k/uL (150-450) 12/23/20 15:01 MPV 7.9 12/23/20 15:01 Neutrophils % 66 % 12/23/20 15:01 Lymphocytes % 27 % 12/23/20 15:01 Monocytes % 3 % 12/23/20 15:01 Eosinophils % 1 % 12/23/20 15:01 Basophils % 1 % 12/23/20 15:01 Neutrophils # 4.8 k/uL (1.3-7.7) 12/23/20 15:01 Lymphocytes # 2.0 k/uL (1.0-4.8) 12/23/20 15:01 Monocytes # 0.2 k/uL (0-1.0) 12/23/20 15:01 Eosinophils # 0.1 k/uL (0-0.7) 12/23/20 15:01 Basophils # 0.1 k/uL (0-0.2) 12/23/20 15:01 Sodium 136 mmol/L (137-145) L 12/23/20 15:01 Potassium 3.9 mmol/L (3.5-5.1) 12/23/20 15:01 Chloride 103 mmol/L (98-107) 12/23/20 15:01 Carbon Dioxide 28 mmol/L (22-30) 12/23/20 15:01 Anion Gap 5 mmol/L 12/23/20 15:01 BUN 16 mg/dL (7-17) 12/23/20 15:01 Creatinine 0.88 mg/dL (0.52-1.04) 12/23/20 15:01 Est GFR (CKD-EPI)AfAm 81 (>60 ml/min/1.73 sqM) 12/23/20 15:01 Est GFR (CKD-EPI)NonAf 71 (>60 ml/min/1.73 sqM) 12/23/20 15:01 Glucose 198 mg/dL (74-99) H 12/23/20 15:01 Calcium 9.2 mg/dL (8.4-10.2) 12/23/20 15:01 Total Bilirubin 0.2 mg/dL (0.2-1.3) 12/23/20 15:01 AST 28 U/L (14-36) 12/23/20 15:01 ALT 33 U/L (4-34) 12/23/20 15:01 Alkaline Phosphatase 77 U/L (38-126) 12/23/20 15:01 Total Protein 6.1 g/dL (6.3-8.2) L 12/23/20 15:01 Albumin 3.7 g/dL (3.5-5.0) 12/23/20 15:01 TSH 2.740 mIU/L (0.465-4.680) 12/23/20 15:01 Free T4 0.63 ng/dL (0.78-2.19) L 12/23/20 15:01 Free T3 pg/mL 4.2 pg/ml (2.8-5.3) 12/23/20 15:01 Vital Signs Temp 97.8 F 12/29/20 06:26 Pulse 62 12/29/20 06:26 Resp 18 12/29/20 06:26 BP 149/74 12/29/20 06:26 Pulse Ox 94 L 12/28/20 06:18 Intake & Output 12/28/20 12/29/20 12/29/20 18:59 06:59 18:59 Weight 55.5 kg Patient Condition at Discharge: Stable Plan - Discharge Summary Discharge Rx Participant: No New Discharge Prescriptions: New Benztropine Mesylate [Cogentin] 1 mg PO DAILY PRN 30 Days tab PRN Reason: muscle spasms Melatonin 6 mg PO HS PRN 30 Days tablet PRN Reason: Insomnia Acetaminophen Tab [Tylenol] 650 mg PO Q4HR PRN tab PRN Reason: Pain/Discomfort fluPHENAZine decanoate [Prolixin Decanoate] 37.5 mg IM Q21D #1 vial Continue Thyroid,Pork [Circus Rider Thyroid] 60 mg PO DAILY Ibuprofen [Motrin] 800 mg PO DAILY PRN PRN Reason: Pain Discontinued LORazepam [Ativan] 0.5 mg PO DAILY PRN PRN Reason: Anxiety Discharge Medication List Ibuprofen [Motrin] 800 mg PO DAILY PRN 12/09/20 [History] Thyroid,Pork [Circus Rider Thyroid] 60 mg PO DAILY 12/09/20 [History] Acetaminophen Tab [Tylenol] 650 mg PO Q4HR PRN tab 12/29/20 [Rx] Benztropine Mesylate [Cogentin] 1 mg PO DAILY PRN 30 Days tab 12/29/20 [Rx] Melatonin 6 mg PO HS PRN 30 Days tablet 12/29/20 [Rx] fluPHENAZine decanoate [Prolixin Decanoate] 37.5 mg IM Q21D #1 vial 12/29/20 [Rx] Follow up Appointment(s)/Referral(s): Counseling, Center [Other] - 01/01/21 11:30 am ([facility]) Madeleine Zaragoza MD [Primary Care Provider] - 1-2 days Patient Instructions/Handouts: Anxiety (ED) Activity/Diet/Wound Care/Special Instructions: Activity and diet as tolerated. Avoid the use of street drugs and alcohol. Take all medications as prescribed. When you are in need of refills on your medications please contact your medical provider and/or outpatient psychiatrist to have this done. Please go to scheduled outpatient appointment for aftercare treatment. If symptoms return or become worse, call the crisis line at and/or go to the nearest emergency room for evaluation. Discharge Disposition: HOME SELF-CARE
[2020-12-29] MEDS ORDERED: MELATONIN 3 MG TABLET PO SCH (21:00)
== END 2020-12-29 12:02 | disposition home or self-care (01) | DRG 885 ==
LOC: EC 19:39 → 3MHU 12-10 00:59
PROVIDERS: ADMIT Psychiatry & Neurology Psychiatry; ATTEND Psychiatry & Neurology Psychiatry
DX: F25.0 Schizoaffective disorder, bipolar type (principal); G25.9 Extrapyramidal and movement disorder, unspecified; F43.10 Post-traumatic stress disorder, unspecified; E03.9 Hypothyroidism, unspecified; G47.00 Insomnia, unspecified; M79.7 Fibromyalgia; Z79.899 Other long term (current) drug therapy; Z91.030 Bee allergy status
CPT/HCPCS: 80053; 82075; 84439; 84443; 84481; 85025; 96372; 99285